=== PATIENT | male | born 1990 | race African-American/Black ===

== ENCOUNTER 2018-01-13 12:56 | Inpatient (IN) | payer OTHER ==
[2018-01-13 14:03] VITALS: BMI 34.9
--- NOTE | 2018-01-13 17:05 | HP ---
CIWA Score - CIWA Score Nausea/Vomitin-No Nausea/No Vomiting Muscle Tremors: 2 Anxiety: 3 Agitation: 3 Paroxysmal Sweats: 2 Orientation: 0-Oriented Tacttile Disturbances: 0-None Auditory Disturbances: 0-None Visual Disturbances: 0-None Headache: 0-None Present CIWA-Ar Total Score: 10 Admission ROS S - HPI Chief Complaint: 27 yo male with hx of alcohol, nicotine and marijuana dependence is here seeking detox for the first time. Denies any medial problems, reports history of anxiety and depression. Denies suicidal or homicidal ideation or hx of suicide attempt. Denies hx of blackout or seizures. Denies any significant period of sobriety. Allergies/Adverse Reactions: Allergies Allergy/AdvReac Type Severity Reaction Status Date / Time No Known Allergies Allergy Verified 01/13/18 15:32 Exam Limitations: No Limitations - Ebola screening Have you traveled outside of the country in the last 21 days: No Have you had contact with anyone from an Ebola affected area: No Have you been sick,other than usual withdrawal symptoms: No Do you have a fever: No - Review of Systems Constitutional: Chills EENT: reports: Blurred Vision (wears glassess) Respiratory: reports: No Symptoms reported GI: reports: Diarrhea, Poor Fluid Intake : reports: No Symptoms Reported Musculoskeletal: reports: No Symptoms Reported Integumentary: reports: No Symptoms Reported Neuro: reports: No Symptoms reported Endocrine: reports: Increased Thirst Hematology: reports: No Symptoms Reported Psychiatric: reports: Orientated x3, Anxious Other Systems: Reviewed and Negative Patient History - Patient Medical History Hx Anemia: No Hx Asthma: No Hx Chronic Obstructive Pulmonary Disease (COPD): No Hx Cancer: No Hx Cardiac Disorders: No Hx Congestive Heart Failure: No Hx Hypertension: No Hx Hypercholesterolemia: No Hx Pacemaker: No HX Cerebrovascular Accident: No Hx Seizures: No Hx Dementia: No Hx Diabetes: No Hx Gastrointestinal Disorders: No Hx Liver Disease: No Hx Genitourinary Disorders: No Hx Sexually Transmitted Disorders: Yes (gonorrhea) Hx Renal Disease (ESRD): No Hx Thyroid Disease: No Hx Human Immunodeficiency Virus (HIV): No (last tested 6 years ago ) Hx Hepatitis C: No Hx Depression: Yes Hx Suicide Attempt: No Hx Bipolar Disorder: No Hx Schizophrenia: No - Patient Surgical History Past Surgical History: No Hx Neurologic Surgery: No Hx Cataract Extraction: No Hx Cardiac Surgery: No Hx Lung Surgery: No Hx Breast Surgery: No Hx Breast Biopsy: No Hx Abdominal Surgery: No Hx Appendectomy: No Hx Cholecystectomy: No Hx Genitourinary Surgery: No Hx Section: No Hx Orthopedic Surgery: No Anesthesia Reaction: No - PPD History Previous Implant?: Yes Documented Results: Negative w/o proof Implanted On Prior [facility] Admission?: No PPD to be Administered?: Yes - Smoking Cessation Smoking history: Current every day smoker Aproximately how many cigarettes per day: 3 Cigars Per Day: 0 Hx Chewing Tobacco Use: No Initiated information on smoking cessation: Yes 'Breaking Loose' booklet given: 01/13/18 - Substance & Tx. History Hx Alcohol Use: Yes Hx Substance Use: Yes Substance Use Type: Alcohol, Marijuana Hx Substance Use Treatment: No - Substances Abused Alcohol Route: Oral Frequency: Daily Amount used: 2 pints of vodka , 6 x 24oz beers Age of first use: 17 Date of Last Use: 01/12/18 Marijuana/Hashish Route: Smoking Frequency: Daily Amount used: $60 Age of first use: 14 Date of Last Use: 01/12/18 Family Disease History - Family Disease History Family Disease History: Other: Father (alive and well ), Mother (alive and well ) Admission Physical Exam S - Vital Signs Vital Signs: Vital Signs - 24 hr 01/13/18 13:57 Temperature 97.7 F Pulse Rate 67 Respiratory 18 Rate Blood Pressure 159/92 - Physical General Appearance: Yes: Disheveled, Mild Distress, Obese, Sweating, Anxious HEENTM: Yes: EOMI, Hearing grossly Normal, Normal ENT Inspection, Normocephalic , Normal Voice, BRANDY, Pharynx Normal, Tm's normal Respiratory: Yes: Chest Non-Tender, Lungs Clear, Normal Breath Sounds, No Respiratory Distress, No Accessory Muscle Use Neck: Yes: No masses,lesions,Nodules, Trachea in good position Breast: Yes: Breast Exam Deferred Cardiology: Yes: Regular Rhythm, Regular Rate Abdominal: Yes: Normal Bowel Sounds, Non Tender, Soft, Protuberent Genitourinary: Yes: Within Normal Limits Back: Yes: Normal Inspection Musculoskeletal: Yes: full range of Motion, Gait Steady, Pelvis Stable Extremities: Yes: Normal Capillary Refill, Normal Inspection, Normal Range of Motion, Non-Tender Neurological: Yes: toll ticket clerk II-XII NML intact, Fully Oriented, Alert, Motor Strength 5/5, Normal Response, Depressed Affect Integumentary: Yes: Normal Color, Warm, Diaphoresis Lymphatic: Yes: Within Normal Limits - Diagnostic (1) Elevated blood pressure reading without diagnosis of hypertension Current Visit: Yes Status: Acute (2) Alcohol dependence with withdrawal Current Visit: Yes Status: Acute Qualifiers: Complication of substance-induced condition: uncomplicated Qualified Code(s ): F10.230 - Alcohol dependence with withdrawal, uncomplicated (3) Diarrhea Current Visit: Yes Status: Acute Qualifiers: Diarrhea type: unspecified type Qualified Code(s): R19.7 - Diarrhea, unspecified (4) Depressed mood Current Visit: Yes Status: Acute Cleared for Admission [facility] - Detox or Rehab [facility] Level of Care: Medically Supervised Detox Regimen/Protocol: Librium S Breath Alcohol Content Breath Alcohol Content: 0 Urine Drug Screen - Results Drug Screen Negative: No Urine Drug Screen Results: THC-Marijuana
[2018-01-13] MEDS ORDERED: MAGNESIUM HYDROX 2400MG/30ML ORAL SUSPENSION 30 ML CUP PO PRN (17:11)
[2018-01-13] MEDS ORDERED: IBUPROFEN 400 MG TABLET (FP) PO PRN (17:11)
[2018-01-13] MEDS ORDERED: MENTHOL/PHENOL 1 EACH UD MM PRN (17:11)
[2018-01-13] MEDS ORDERED: ACETAMINOPHEN 325 MG TABLET (FP) PO PRN (17:11)
[2018-01-13] MEDS ORDERED: chlordiazePOXIDE HCL 25 MG CAPSULE PO PRN (17:11)
[2018-01-13] MEDS ORDERED: guaiFENesin/D-METHORPHAN HB 10 ML UNIT-DOSE CUPS PO PRN (17:11)
[2018-01-13] MEDS ORDERED: hydrOXYzine PAMOATE 50 MG CAPSULE (FP) PO PRN (17:11)
[2018-01-13] MEDS ORDERED: P-EPHED 60MG/TRIPROLIDI 2.5MG TABLET PO PRN (17:11)
[2018-01-13] MEDS ORDERED: MAGNESIUM CITRATE 300 ML BOTTLE PO PRN (17:11)
[2018-01-13] MEDS ORDERED: LOPERAMIDE HCL 2 MG CAPSULE PO PRN (17:11)
[2018-01-13] MEDS ORDERED: MAG HYDROX/AL HYDROX/SIMETH 30 ML UNIT-DOSE CUP PO PRN (17:11)
[2018-01-13] MEDS: THIAMINE HCL 100 MG TABLET (FP) PO SCH (22:07)
[2018-01-13] MEDS: chlordiazePOXIDE HCL 25 MG CAPSULE PO SCH (22:07)
[2018-01-13 22:55] LABS: URINE APPEARANCE CLEAR; URINE BILIRUBIN NEGATIVE (<2.0 mg/dL); URINE COLOR LTYELLOW; URINE GLUCOSE (UA) NEGATIVE (NEGATIVE); URINE KETONE NEGATIVE (NEGATIVE); URINE LEUK ESTERASE NEGATIVE (NEGATIVE); URINE NITRITE NEGATIVE (NEGATIVE); URINE PROTEIN NEGATIVE (NEGATIVE); URINE UROBILINOGEN NEGATIVE mg/dL (0.2-1.0)
[2018-01-14] MEDS: chlordiazePOXIDE HCL 25 MG CAPSULE PO SCH ×4 (05:21→22:09)
[2018-01-14 10:11] LABS: HEMATOCRIT 45.2 % (35.4-49); HEMOGLOBIN 15.3 GM/dL (11.7-16.9); MCH 30.5 pg (25.7-33.7); MCHC 33.9 g/dl (32.0-35.9); MEAN PLT VOLUME 8.7 fl (7.5-11.1); PLATELET COUNT 168 K/MM3 (134-434); RBC 5.03 M/mm3 (4.00-5.60); WHITE BLOOD COUNT 4.8 K/mm3 (4.0-10.0)
[2018-01-14] MEDS: PRENATAL VITAMINS W/ FOLIC ACID TABLET (FP) PO SCH (10:17)
[2018-01-14 10:52] LABS: CHLORIDE 104 mmol/L (98-107); POTASSIUM 3.9 mmol/L (3.5-5.1); SODIUM 139 mmol/L (136-145)
[2018-01-14 11:20] LABS: ALBUMIN 4.1 g/dl (3.4-5.0); ALK PHOS 96 U/L (45-117); ANION GAP 8 (8-16); BILIRUBIN,TOTAL 0.3 mg/dL (0.2-1.0); BLOOD UREA NITROGEN 13 mg/dL (7-18); CALCIUM 9.1 mg/dL (8.5-10.1); CO2 27 mmol/L (21-32); GLUCOSE,RANDOM 95 mg/dL (74-106); SGOT/AST 27 U/L (15-37); SGPT/ALT 35 U/L (12-78)
--- NOTE | 2018-01-14 14:16 | PN ---
[facility] CIWA - CIWA Score Nausea/Vomitin-No Nausea/No Vomiting Muscle Tremors: None Anxiety: 4-Mod. Anxious/Guarded Agitation: 0-Normal Activity Paroxysmal Sweats: 2 Orientation: 0-Oriented Tacttile Disturbances: 2-Mild Itch/Numbness/Burn Auditory Disturbances: 1-Very Mild Visual Disturbances: 2-Mild Sensitivity Headache: 0-None Present CIWA-Ar Total Score: 11 S Progress Note (SOAP) Subjective: Interrupted Sleep, Fatigue, Diarrhea. Objective: PATIENT A & O X 3. NO ACUTE DISTRESS. 01/14/18 14:15 Vital Signs Temperature 97.3 F L 01/14/18 10:23 Pulse Rate 55 L 01/14/18 10:23 Respiratory Rate 18 01/14/18 10:23 Blood Pressure 122/84 01/14/18 10:23 O2 Sat by Pulse Oximetry (%) Laboratory Tests 01/13/18 01/14/18 01/14/18 22:40 07:30 07:30 WBC 4.8 RBC 5.03 Hgb 15.3 Hct 45.2 MCV 90.0 MCH 30.5 MCHC 33.9 RDW 14.0 Plt Count 168 MPV 8.7 Sodium 139 Potassium 3.9 Chloride 104 Carbon Dioxide 27 Anion Gap 8 BUN 13 Creatinine 1.0 Creat Clearance w eGFR > 60 Random Glucose 95 Calcium 9.1 Total Bilirubin 0.3 AST 27 ALT 35 Alkaline Phosphatase 96 Total Protein 7.0 Albumin 4.1 Urine Color Ltyellow Urine Appearance Clear Urine pH 6.0 Ur Specific [place] 1.018 Urine Protein Negative Urine Glucose (UA) Negative Urine Ketones Negative Urine Blood Negative Urine Nitrite Negative Urine Bilirubin Negative Urine Urobilinogen Negative Ur Leukocyte Esterase Negative RPR Titer 01/14/18 07:30 WBC RBC Hgb Hct MCV MCH MCHC RDW Plt Count MPV Sodium Potassium Chloride Carbon Dioxide Anion Gap BUN Creatinine Creat Clearance w eGFR Random Glucose Calcium Total Bilirubin AST ALT Alkaline Phosphatase Total Protein Albumin Urine Color Urine Appearance Urine pH Ur Specific [place] Urine Protein Urine Glucose (UA) Urine Ketones Urine Blood Urine Nitrite Urine Bilirubin Urine Urobilinogen Ur Leukocyte Esterase RPR Titer Nonreactive LABS NOTED. Assessment: 01/14/18 14:15 WITHDRAWAL SYMPTOMS. 01/14/18 14:16 Plan: CONTINUE DETOX.
--- NOTE | 2018-01-14 14:27 | EKG ---
Test Reason : Blood Pressure : / mmHG Vent. Rate : 055 BPM Atrial Rate : 055 BPM P-R Int : 184 ms QRS Dur : 088 ms QT Int : 418 ms P-R-T Axes : 030 063 017 degrees QTc Int : 399 ms SINUS BRADYCARDIA POSSIBLE LEFT ATRIAL ENLARGEMENT BORDERLINE ECG NO PREVIOUS ECGS AVAILABLE Confirmed by CELENA OROZCO MD ([id number]) on 01/14/2018 2:26:26 PM Referred By: Confirmed By:CELENA OROZCO MD
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
[2018-01-14] MEDS: THIAMINE HCL 100 MG TABLET (FP) PO SCH (22:09)
[2018-01-14] MEDS: MELATONIN 5 MG TABLETS PO PRN (22:09)
[2018-01-15] MEDS: chlordiazePOXIDE HCL 25 MG CAPSULE PO SCH ×3 (05:27→16:57)
[2018-01-15] MEDS: PRENATAL VITAMINS W/ FOLIC ACID TABLET (FP) PO SCH (10:37)
--- NOTE | 2018-01-15 15:22 | PN ---
[facility] CIWA - CIWA Score Nausea/Vomitin-No Nausea/No Vomiting Muscle Tremors: None Anxiety: 4-Mod. Anxious/Guarded Agitation: 2 Paroxysmal Sweats: 3 Orientation: 0-Oriented Tacttile Disturbances: 2-Mild Itch/Numbness/Burn Auditory Disturbances: 0-None Visual Disturbances: 0-None Headache: 0-None Present CIWA-Ar Total Score: 11 S Progress Note (SOAP) Subjective: Fatigue, Anxious. Objective: PATIENT A & O X 3, OBSERVED AMBULATING ON UNIT. NO ACUTE DISTRESS. 01/15/18 15:23 Vital Signs Temperature 97.3 F L 01/15/18 14:22 Pulse Rate 60 01/15/18 14:22 Respiratory Rate 20 01/15/18 14:22 Blood Pressure 125/72 01/15/18 14:22 O2 Sat by Pulse Oximetry (%) Laboratory Tests 01/13/18 01/14/18 01/14/18 22:40 07:30 07:30 WBC 4.8 RBC 5.03 Hgb 15.3 Hct 45.2 MCV 90.0 MCH 30.5 MCHC 33.9 RDW 14.0 Plt Count 168 MPV 8.7 Sodium 139 Potassium 3.9 Chloride 104 Carbon Dioxide 27 Anion Gap 8 BUN 13 Creatinine 1.0 Creat Clearance w eGFR > 60 Random Glucose 95 Calcium 9.1 Total Bilirubin 0.3 AST 27 ALT 35 Alkaline Phosphatase 96 Total Protein 7.0 Albumin 4.1 Urine Color Ltyellow Urine Appearance Clear Urine pH 6.0 Ur Specific [place] 1.018 Urine Protein Negative Urine Glucose (UA) Negative Urine Ketones Negative Urine Blood Negative Urine Nitrite Negative Urine Bilirubin Negative Urine Urobilinogen Negative Ur Leukocyte Esterase Negative RPR Titer 01/14/18 07:30 WBC RBC Hgb Hct MCV MCH MCHC RDW Plt Count MPV Sodium Potassium Chloride Carbon Dioxide Anion Gap BUN Creatinine Creat Clearance w eGFR Random Glucose Calcium Total Bilirubin AST ALT Alkaline Phosphatase Total Protein Albumin Urine Color Urine Appearance Urine pH Ur Specific [place] Urine Protein Urine Glucose (UA) Urine Ketones Urine Blood Urine Nitrite Urine Bilirubin Urine Urobilinogen Ur Leukocyte Esterase RPR Titer Nonreactive LABS NOTED. Assessment: 01/15/18 15:24 WITHDRAWAL SYMPTOMS. Plan: CONTINUE DETOX. ENCOURAGE AMBULATION.
[2018-01-15] MEDS: THIAMINE HCL 100 MG TABLET (FP) PO SCH (22:03)
[2018-01-15] MEDS: MELATONIN 5 MG TABLETS PO PRN (22:04)
[2018-01-15] MEDS: chlordiazePOXIDE 5 MG CAPSULE PO SCH (22:04)
[2018-01-16] MEDS: chlordiazePOXIDE 5 MG CAPSULE PO SCH ×3 (05:34→17:17)
[2018-01-16] MEDS: PRENATAL VITAMINS W/ FOLIC ACID TABLET (FP) PO SCH (10:33)
--- NOTE | 2018-01-16 15:03 | PN ---
[facility] Progress Note (SOAP) Subjective: Fatigue, Sweating. Objective: PATIENT A & O X 3, OBSERVED AMBULATING ON UNIT. NO ACUTE DISTRESS. 01/16/18 15:00 Vital Signs Temperature 98.2 F 01/16/18 14:22 Pulse Rate 70 01/16/18 14:22 Respiratory Rate 18 01/16/18 14:22 Blood Pressure 118/76 01/16/18 14:22 O2 Sat by Pulse Oximetry (%) Laboratory Tests 01/13/18 01/14/18 01/14/18 22:40 07:30 07:30 WBC 4.8 RBC 5.03 Hgb 15.3 Hct 45.2 MCV 90.0 MCH 30.5 MCHC 33.9 RDW 14.0 Plt Count 168 MPV 8.7 Sodium 139 Potassium 3.9 Chloride 104 Carbon Dioxide 27 Anion Gap 8 BUN 13 Creatinine 1.0 Creat Clearance w eGFR > 60 Random Glucose 95 Calcium 9.1 Total Bilirubin 0.3 AST 27 ALT 35 Alkaline Phosphatase 96 Total Protein 7.0 Albumin 4.1 Urine Color Ltyellow Urine Appearance Clear Urine pH 6.0 Ur Specific [place] 1.018 Urine Protein Negative Urine Glucose (UA) Negative Urine Ketones Negative Urine Blood Negative Urine Nitrite Negative Urine Bilirubin Negative Urine Urobilinogen Negative Ur Leukocyte Esterase Negative RPR Titer 01/14/18 07:30 WBC RBC Hgb Hct MCV MCH MCHC RDW Plt Count MPV Sodium Potassium Chloride Carbon Dioxide Anion Gap BUN Creatinine Creat Clearance w eGFR Random Glucose Calcium Total Bilirubin AST ALT Alkaline Phosphatase Total Protein Albumin Urine Color Urine Appearance Urine pH Ur Specific [place] Urine Protein Urine Glucose (UA) Urine Ketones Urine Blood Urine Nitrite Urine Bilirubin Urine Urobilinogen Ur Leukocyte Esterase RPR Titer Nonreactive LABS NOTED. Assessment: 01/16/18 15:00 WITHDRAWAL SYMPTOMS. Plan: CONTINUE DETOX. PATIENT SCHEDULED FOR D/C TOMORROW AM.
[2018-01-16] MEDS: THIAMINE HCL 100 MG TABLET (FP) PO SCH (22:06)
[2018-01-16] MEDS: chlordiazePOXIDE HCL 10 MG CAPSULE PO SCH (22:06)
[2018-01-16] MEDS: MELATONIN 5 MG TABLETS PO PRN (22:07)
[2018-01-16 22:32] VITALS: PULSE 60
[2018-01-17] MEDS: chlordiazePOXIDE HCL 10 MG CAPSULE PO SCH ×2 (06:00→11:01)
[2018-01-17 06:48] VITALS: BP 104/71; TEMP 96.8
[2018-01-17] MEDS: PRENATAL VITAMINS W/ FOLIC ACID TABLET (FP) PO SCH (11:01)
--- NOTE | 2018-01-17 14:34 | PN ---
[facility] Progress Note (SOAP) Subjective: pt feeling well, leaving today for home Objective: 01/17/18 14:31 Vital Signs - 24 hr 01/16/18 01/16/18 01/17/18 17:40 22:00 00:30 Temperature 97.1 F L 98.8 F Pulse Rate 66 60 Respiratory 18 20 18 Rate Blood Pressure 113/66 117/66 01/17/18 01/17/18 03:30 06:47 Temperature 96.8 F L Pulse Rate 60 Respiratory 18 18 Rate Blood Pressure 104/71 Laboratory Tests 01/13/18 01/14/18 01/14/18 22:40 07:30 07:30 WBC 4.8 RBC 5.03 Hgb 15.3 Hct 45.2 MCV 90.0 MCH 30.5 MCHC 33.9 RDW 14.0 Plt Count 168 MPV 8.7 Sodium 139 Potassium 3.9 Chloride 104 Carbon Dioxide 27 Anion Gap 8 BUN 13 Creatinine 1.0 Creat Clearance w eGFR > 60 Random Glucose 95 Calcium 9.1 Total Bilirubin 0.3 AST 27 ALT 35 Alkaline Phosphatase 96 Total Protein 7.0 Albumin 4.1 Urine Color Ltyellow Urine Appearance Clear Urine pH 6.0 Ur Specific [place] 1.018 Urine Protein Negative Urine Glucose (UA) Negative Urine Ketones Negative Urine Blood Negative Urine Nitrite Negative Urine Bilirubin Negative Urine Urobilinogen Negative Ur Leukocyte Esterase Negative RPR Titer 01/14/18 07:30 WBC RBC Hgb Hct MCV MCH MCHC RDW Plt Count MPV Sodium Potassium Chloride Carbon Dioxide Anion Gap BUN Creatinine Creat Clearance w eGFR Random Glucose Calcium Total Bilirubin AST ALT Alkaline Phosphatase Total Protein Albumin Urine Color Urine Appearance Urine pH Ur Specific [place] Urine Protein Urine Glucose (UA) Urine Ketones Urine Blood Urine Nitrite Urine Bilirubin Urine Urobilinogen Ur Leukocyte Esterase RPR Titer Nonreactive URINE DRUG SCREEN RESULTS Drug Screen Negative No Drug Screen Negative No Urine Drug Screen Results THC-Marijuana Urine Drug Screen Results THC-Marijuana Assessment: 01/17/18 14:34 Ass/plan: Completed detox/going home today
--- NOTE | 2018-01-17 14:37 | DS ---
[facility] Detox Discharge Summary Admission Date: 01/13/18 Discharge Date: 01/17/18 - History Present History: Alcohol Dependence - Physical Exam Results Vital Signs: Vital Signs Temperature 96.8 F L 01/17/18 06:47 Pulse Rate 60 01/17/18 06:47 Respiratory Rate 18 01/17/18 06:47 Blood Pressure 104/71 01/17/18 06:47 O2 Sat by Pulse Oximetry (%) Pertinent Admission Physical Exam Findings: 27 yo male with hx of alcohol, nicotine and marijuana dependence is here seeking detox for the first time. Denies any medial problems, - Treatment Hospital Course: Detox Protocol Followed, Detoxed Safely, Responded well, Discharged Condition Good - Medication Discharge Medications: Ambulatory Orders NK [No Known Home Medication] 01/13/18 - AMA Did Patient Leave Against Medical Advice: No
== END 2018-01-17 12:05 | disposition home or self-care (01) | DRG 775 ==
LOC: YASAS 12:56 → Y3N 16:14
PROVIDERS: ADMIT Surgery; ATTEND Surgery
PROC: HZ2ZZZZ Detoxification Services for Substance Abuse Treatment (ICD-10-PCS; principal; 2018-01-13)
DX: F10.230 Alcohol dependence with withdrawal, uncomplicated (principal); F12.20 Cannabis dependence, uncomplicated; F17.210 Nicotine dependence, cigarettes, uncomplicated; F32.9 Major depressive disorder, single episode, unspecified; G47.00 Insomnia, unspecified; R19.7 Diarrhea, unspecified; R03.0 Elevated blood-pressure reading, without diagnosis of hypertension; Z86.19 Personal history of other infectious and parasitic diseases
CPT/HCPCS: 36415; 80053; 81003; 85027; 86593; 93005; 93010